=== PATIENT | male | born 1995 | race Two or more races ===

== ENCOUNTER 2018-11-27 10:35 | Emergency (ER) | payer MEDICAID ==
[~2018-11-27] VITALS: Ht 172.7 cm; Wt 79.4 kg
[2018-11-27 10:52] VITALS: BP 122/83
[2018-11-27] MEDS ORDERED: BACITRACIN TOP OINT 1 UD PKG TOP ONE (11:15)
[2018-11-27] MEDS ORDERED: LIDOCAINE 1% (LOCAL ANESTH.) PF 5ml SDV ID ONE (11:15)
== END 2018-11-27 13:06 | disposition home or self-care (01) ==
LOC: ER 10:35
DX: S51.821A Laceration with foreign body of right forearm, initial encounter (principal); W22.8XXA Striking against or struck by other objects, initial encounter; Y93.89 Activity, other specified; Y99.8 Other external cause status; Y92.89 Other specified places as the place of occurrence of the external cause
CPT/HCPCS: 12002; 12032; 73090